=== PATIENT | female | born 1975 | race Caucasian/White ===

== ENCOUNTER → 2017-07-17 | Outpatient (CLI) | payer OTHER, BC ==
[~2017-07-17] MED LIST: CALCIUM; FLAGYL; HYDR-707 PO; KETO-22 PO; LEVO175T2 PO; MORP60TA12; TROS60CA; VITA1TAB74 PO
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
== END ==
LOC: RAD 11:43
PROVIDERS: ATTEND Orthopaedic Surgery
DX: M47.812 Spondylosis without myelopathy or radiculopathy, cervical region (principal)
CPT/HCPCS: 72141

== ENCOUNTER → 2021-06-23 | Outpatient (CLI) | payer OTHER ==
[2021-06-23 12:55] LABS: HEMATOCRIT 38 % (35-52); HEMOGLOBIN 12.6 G/DL (11.5-16.0); MEAN CORPUSCULAR HEMOGLOBIN 31 PG (25-34); MEAN CORPUSCULAR HGB CONC 33 G/DL (32-36); MEAN CORPUSCULAR VOLUME 95 FL (80-99); WHITE BLOOD COUNT 5.3 10^3/uL (4.3-11.0)
[2021-06-23 12:56] LABS: BASOPHILS # (AUTO) 0.1 10^3/uL (0.0-0.1); BASOPHILS % (AUTO) 1 % (0-10); EOSINOPHILS # (AUTO) 0.2 10^3/uL (0.0-0.3); EOSINOPHILS % (AUTO) 4 % (0-10); LYMPHOCYTES # (AUTO) 2.1 X 10^3 (1.0-4.0); LYMPHOCYTES % (AUTO) 39 % (12-44); MEAN PLATELET VOLUME 9.5 FL (7.4-10.4); MONOCYTES # (AUTO) 0.5 X 10^3 (0.0-1.0); MONOCYTES % (AUTO) 9 % (0-12); NEUTROPHILS # (AUTO) 2.5 X 10^3 (1.8-7.8); NEUTROPHILS % (AUTO) 47 % (42-75); PLATELET COUNT 359 10^3/uL (130-400)
[2021-06-23 13:00] LABS: POTASSIUM 3.7 MMOL/L (3.6-5.0)
[2021-06-23 13:01] LABS: ALBUMIN 3.8 GM/DL (3.2-4.5); BILIRUBIN,TOTAL 0.2 MG/DL (0.1-1.0); CALCIUM 8.7 MG/DL (8.5-10.1); CREATININE SERUM 1.06 MG/DL (0.60-1.30); TOTAL PROTEIN 6.4 GM/DL (6.4-8.2)
--- NOTE | 2021-06-23 13:58 | Diagnostic Imaging Report ---
INDICATION: Cough, pneumonia, shortness of breath. History of Covid. FINDINGS: There is some air trapping and features of underlying COPD but no findings of pneumonia or acute infiltrate. No failure, effusion or pneumothorax. IMPRESSION: Clear hyperexpanded lungs. No acute appearing abnormality. Dictated by: Dictated on workstation # [id number]
== END ==
LOC: LAB FS 11:53
PROVIDERS: ATTEND Nurse Practitioner Family
DX: J18.9 Pneumonia, unspecified organism (principal); Z86.16 Personal history of COVID-19
CPT/HCPCS: 36415; 71046; 80053; 85025; 85379

== ENCOUNTER 2022-08-10 17:37 | Emergency (ER) | payer OTHER ==
[~2022-08-10] VITALS: Ht 162.5 cm; Wt 66.2 kg
--- NOTE | 2022-08-10 17:50 | ED Chest Pain ---
General Chief Complaint: Chest Pain Stated Complaint: LEGS SWELLING,DRY COUGH,NAUSEA,CHEST PAIN/PRESSURE History of Present Illness Date Seen by Provider: Aug 10, 2022 Time Seen by Provider: 17:45 Initial Comments Patient reports that she has had chest pain for the past week. Symptoms have been fairly consistent since that time. Reports that she feels a heaviness in her chest. History of OH in the past. Reports that she did not receive stents at that time. Does have stents in groin for PVD. States that she has noticed that her legs have been really swollen throughout the week. Is taking Lasix this week. Reports that she has it prn and has had to take it every day this week. 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 Associated Symptoms: No abdominal pain, No back pain, No diaphoresis, No dizziness, No edema, No fatigue, No fever/chills, No headache, No heartburn, No nausea/vomiting, No shortness of breath, No syncope, No weakness Allergies and Home Medications Allergies Coded Allergies: Penicillins (Verified Adverse Reaction, Unknown, RASH, 12/25/05) oxycodone HCl (Unverified Adverse Reaction, Unknown, 08/10/22) Patient Home Medication List Home Medication List Reviewed: Yes Hydrocodone Bit/Acetaminophen (Lortab 5-500 Tablet) 1 Each Tablet, 1 EACH PO Q 4 - 6 HR PRN, (Reported) Entered as Reported by: BRENT DUMONT on 06/30/091900 Ketorolac Tromethamine (Toradol) 10 Mg Tablet, 10 MG PO Q8H PRN Prescribed by: MAGGIE AGUILERA on 06/20/111956 Levothyroxine Sodium (Synthroid) 175 Mcg Tablet, 1 EACH PO DAILY, (Reported) Entered as Reported by: NICO BARBOZA on 06/18/11 152 Morphine Sulfate (Ms Contin) 60 Mg Tablet.sa, (Reported) Entered as Reported by: DAKSHA NICHOLSON on 06/20/111828 Vitamin B Complex (Super B [id number]) 1 Each Tablet, 1 EACH PO DAILY, (Reported) Entered as Reported by: BRENT DUMONT on 06/30/09 8848 Review of Systems Review of Systems Constitutional: No chills, No dizziness, No fever, No weakness EENTM: No Symptoms Reported Respiratory: Denies Cough; Shortness of Air, SOA With Exertion, SOA at Rest; Denies Wheezing Cardiovascular: Chest Pain, Edema (bilateral lower extremities); Denies Lightheadedness, Denies Palpitations, Denies Syncope Gastrointestinal: Denies Abdominal Pain, Denies Diarrhea, Denies Nausea, Denies Vomiting Genitourinary: Denies Burning, Denies Frequency Musculoskeletal: No back pain Skin: No pruritus, No rash Psychiatric/Neurological: Denies Headache, Denies Numbness, Denies Paresthesia All Other Systems Reviewed Negative Unless Noted: Yes Past Ilvujnv-Knoimc-Rlnmnk Hx Patient Social History Tobacco Use?: No Substance use?: No Alcohol Use?: No Past Medical History Reproductive Disorders: No Family Medical History Reviewed Nursing Family Hx Physical Exam Vital Signs Vital Signs - First Documented 08/10/22 08/10/22 17:42 19:16 Temp 36.6 Pulse 98 Resp 16 B/P (MAP) 137/101 (113) Pulse Ox 98 O2 Delivery Room Air Capillary Refill : Height, Weight, BMI Height: '" Weight: lbs. oz. kg; BMI Method:Stated General Appearance: No Apparent Distress, WD/WN Neck: Full Range of Motion, Normal Inspection, Non Tender, Supple Respiratory: Chest Non Tender, Lungs Clear, Normal Breath Sounds, No Accessory Muscle Use, No Respiratory Distress Cardiovascular: Regular Rate, Rhythm, Other (bilateral lowere extremity swelling, right more then left) Gastrointestinal: Normal Bowel Sounds, No Organomegaly, No Pulsatile Mass, Soft Extremity: Non Tender, Swelling (bilateral lower extremity) Neurologic/Psychiatric: Alert, Oriented x3 Skin: Normal Color, Warm/Dry Progress/Results/Core Measures Results/Orders Lab Results Laboratory Tests Test 08/10/22 17:53 Range/Units White Blood Count 4.3 4.3-11.0 10^3/uL Red Blood Count 3.60 L 3.80-5.11 10^6/uL Hemoglobin 11.4 L 11.5-16.0 g/dL Hematocrit 35 35-52 % Mean Corpuscular Volume 96 80-99 fL Mean Corpuscular Hemoglobin 32 25-34 pg Mean Corpuscular Hemoglobin Concent 33 32-36 g/dL Red Cell Distribution Width 13.1 10.0-14.5 % Platelet Count 268 130-400 10^3/uL Mean Platelet Volume 9.4 9.0-12.2 fL Immature Granulocyte % (Auto) 0 % Neutrophils (%) (Auto) 62 42-75 % Lymphocytes (%) (Auto) 22 12-44 % Monocytes (%) (Auto) 11 0-12 % Eosinophils (%) (Auto) 4 0-10 % Basophils (%) (Auto) 1 0-10 % Neutrophils # (Auto) 2.7 1.8-7.8 10^3/uL Lymphocytes # (Auto) 0.9 L 1.0-4.0 10^3/uL Monocytes # (Auto) 0.5 0.0-1.0 10^3/uL Eosinophils # (Auto) 0.2 0.0-0.3 10^3/uL Basophils # (Auto) 0.1 0.0-0.1 10^3/uL Immature Granulocyte # (Auto) 0.0 0.0-0.1 10^3/uL Prothrombin Time 13.8 12.2-14.7 SEC INR Comment 1.0 0.8-1.4 Activated Partial Thromboplast Time 30 24-35 SEC Sodium Level 143 135-145 MMOL/L Potassium Level 3.3 L 3.6-5.0 MMOL/L Chloride Level 101 98-107 MMOL/L Carbon Dioxide Level 28 21-32 MMOL/L Anion Gap 14 5-14 MMOL/L Blood Urea Nitrogen 9 7-18 MG/DL Creatinine 1.05 0.60-1.30 MG/DL Estimat Glomerular Filtration Rate 66 BUN/Creatinine Ratio 9 Glucose Level 118 H 70-105 MG/DL Calcium Level 8.3 L 8.5-10.1 MG/DL Corrected Calcium 8.5 8.5-10.1 MG/DL Magnesium Level 1.7 1.6-2.4 MG/DL Total Bilirubin 0.3 0.1-1.0 MG/DL Aspartate Amino Transf (AST/SGOT) 25 5-34 U/L Alanine Aminotransferase (ALT/SGPT) 24 0-55 U/L Alkaline Phosphatase 65 40-136 U/L Myoglobin 69.1 10.0-92.0 NG/ML Troponin I < 0.028 <0.028 NG/ML B-Type Natriuretic Peptide 58.4 <100.0 PG/ML Total Protein 6.7 6.4-8.2 GM/DL Albumin 3.8 3.2-4.5 GM/DL Lipase 32 8-78 U/L My Orders Orders - DEYA FU APRN Cbc With Automated Diff (08/10/22 17:50) Magnesium (08/10/22 17:50) Chest 1 View, Ap/Pa Only (08/10/22 17:50) Ekg Tracing (08/10/22 17:50) Comprehensive Metabolic Panel (08/10/22 17:50) Myoglobin Serum (08/10/22 17:50) Protime With Inr (08/10/22 17:50) Partial Thromboplastin Time (08/10/22 17:50) O2 (08/10/22 17:50) Monitor-Rhythm Ecg Trace Only (08/10/22 17:50) Ed Iv/Invasive Line Start (08/10/22 17:50) Lipase (08/10/22 17:50) Bnp Dominique (08/10/22 17:50) Troponin I Dominique (08/10/22 17:50) Aspirin Chewable Tablet (Baby Aspirin Ch (08/10/22 18:00) Medications Given in ED Current Medications Medications Dose Ordered Sig/Manjula Route Start Time Stop Time Status Last Admin Dose Admin Aspirin 324 mg ONCE ONCE PO 08/10/22 18:00 08/10/22 18:01 DC 08/10/22 18:03 324 MG Vital Signs/I&O 08/10/22 08/10/22 17:42 19:16 Temp 36.6 Pulse 98 71 Resp 16 16 B/P (MAP) 137/101 (113) 124/85 Pulse Ox 98 98 O2 Delivery Room Air Room Air Progress Progress Note : Progress Note Patient comes to department with chest pain for the past week with bilateral lower leg swelling. States that she has been taking her Lasix daily to decrease the swelling. Will check labs and XR and determine further treatment from there. 1900: Spoke to patient in regards to labs and imaging. Overall labs looked good. Did not appear by labs and CXR to have CHF. No history of CHF that she is aware of. Troponin was negative. She had mild bilateral lower extremity swelling which is likely improving this week based off the fact that she is already taking Lasix. Her troponin was negative despite having symptoms for the past few days, so I do not thinks that she needs additional trending troponins. Instructed on the importance of follow up with PCP for further evaluation and treatment. Reasons to return to the ER were discussed with patient and family. Initial ECG Impression Date: Aug 10, 2022 Initial ECG Impression Time: 17:40 Initial ECG Rate: 85 Initial ECG Rhythm: Normal Sinus Initial ECG Intervals: Normal Initial ECG Impression: Normal Departure Impression Primary Impression: Chest pain Qualified Codes: R07.9 - Chest pain, unspecified Disposition: 01 HOME, SELF-CARE Condition: Stable Departure-Patient Inst. Decision time for Depature: 19:11 Referrals: NO,LOCAL PHYSICIAN (PCP/Family) Primary Care Physician Patient Instructions: Chest Pain (DC) Add. Discharge Instructions: 1. Follow up with PCP for further evaluation and treatment. 2. Continue medications at home as directed. 3. Return here if worse or concerns. All discharge instructions reviewed with patient and/or family. Voiced under standing. DEYA FU APRN Aug 10, 2022 17:50
[2022-08-10 18:00] LABS: BASOPHILS # (AUTO) 0.1 10^3/uL (0.0-0.1); BASOPHILS % (AUTO) 1 % (0-10); EOSINOPHILS # (AUTO) 0.2 10^3/uL (0.0-0.3); EOSINOPHILS % (AUTO) 4 % (0-10); HEMATOCRIT 35 % (35-52); HEMOGLOBIN 11.4 g/dL (11.5-16.0); LYMPHOCYTES # (AUTO) 0.9 10^3/uL (1.0-4.0); LYMPHOCYTES % (AUTO) 22 % (12-44); MEAN CORPUSCULAR HEMOGLOBIN 32 pg (25-34); MEAN CORPUSCULAR HGB CONC 33 g/dL (32-36); MEAN CORPUSCULAR VOLUME 96 fL (80-99); MEAN PLATELET VOLUME 9.4 fL (9.0-12.2); MONOCYTES # (AUTO) 0.5 10^3/uL (0.0-1.0); MONOCYTES % (AUTO) 11 % (0-12); NEUTROPHILS # (AUTO) 2.7 10^3/uL (1.8-7.8); NEUTROPHILS % (AUTO) 62 % (42-75); PLATELET COUNT 268 10^3/uL (130-400); WHITE BLOOD COUNT 4.3 10^3/uL (4.3-11.0)
[2022-08-10] MEDS ORDERED: ASPIRIN 81 MG CHEW (CHILDREN'S ASA) PO ONE (18:00)
[2022-08-10 18:18] LABS: ALBUMIN 3.8 GM/DL (3.2-4.5); POTASSIUM 3.3 MMOL/L (3.6-5.0)
[2022-08-10 18:20] LABS: CALCIUM 8.3 MG/DL (8.5-10.1)
--- NOTE | 2022-08-10 18:20 | Diagnostic Imaging Report ---
INDICATION: Chest pain. EXAMINATION: Frontal chest was obtained at 6:08 p.m. COMPARISON: 06/23/2021. FINDINGS: Heart and mediastinal silhouette are normal in appearance. The lungs are clear. There is no pneumothorax or pleural fluid. IMPRESSION: Negative chest. Dictated by: Dictated on workstation # [id number]
[2022-08-10 18:21] LABS: TOTAL PROTEIN 6.7 GM/DL (6.4-8.2)
[2022-08-10 18:23] LABS: BILIRUBIN,TOTAL 0.3 MG/DL (0.1-1.0)
[2022-08-10 18:24] LABS: CREATININE SERUM 1.05 MG/DL (0.60-1.30)
[2022-08-10 18:28] LABS: MAGNESIUM 1.7 MG/DL (1.6-2.4)
[2022-08-10 18:46] LABS: PROTHROMBIN TIME PATIENT 13.8 SEC (12.2-14.7)
[2022-08-10 19:16] VITALS: BP 124/85
== END 2022-08-10 19:21 | disposition home or self-care (01) ==
LOC: EDUNIT# 17:37 → ER 17:40
DX: R07.89 Other chest pain (principal)
CPT/HCPCS: 36415; 71045; 80053; 83690; 83735; 83874; 83880; 84484; 85025; 85610; 85730; 93005; 93041

== ENCOUNTER 2022-12-13 12:34 | Emergency (ER) | payer OTHER ==
[2022-12-13 12:52] VITALS: BP 133/90
[2022-12-13] MEDS ORDERED: IBUPROFEN 600 MG (MOTRIN) TAB PO STA (13:09)
--- NOTE | 2022-12-13 13:12 | ED Fall/Injury ---
General Chief Complaint: Upper Extremity Stated Complaint: LT WRIST INJ Nursing Triage Note: PT REPORTS SHE FELL THIS AM ONTO HER LEFT WRIST AT ABOUT 11AM. Source: patient History of Present Illness Date Seen by Provider: Dec 13, 2022 Time Seen by Provider: 12:37 Initial Comments 47-year-old female presenting with complaints of left wrist pain since she fell around 11 AM. She states that she was sitting on the floor with her legs crossed and her feet went to sleep. She does have a history of prior lumbar surgery for spinal stenosis and irritated nerves. She reports getting intermitt ent numbness and tingling in her legs but usually it improves that she changes position. She had gotten up from the floor and was slowly walking back to her bedroom using furniture and pitts to help stabilize her. She fell he felt like her foot had improved but when she stepped down without any furniture or wall to help support her she states that her foot was numb and that caused her to fall backward. When she fell she had hit her left wrist and was having pain. She denies any numbness or weakness in her fingers or hand. She was also concerned because she had fallen 3 to 4 weeks ago and thought she heard a popping in her ribs on the right and left side. She was having more pain on the left side since the fall this morning so she was concerned about possible rib fractures. She denies having shortness of breath or fever, chills, nausea, vomiting, headache, abdominal pain, pain with urination. Occurred: this morning (around 11 am fall today but also fell about 3-4 weeks ago causing rib pain that is worse today since she had new fall) Severity: moderate Injuries/Pain Location: upper extremity (Left wrist), chest (Bilateral lower ribs) Loss of Consciousness: no loss of consciousness Modifying Factors: Worse With Movement Associated Symptoms (Fall): No Abdominal Pain, No Confusion, No Dizziness, No Headache, No Lightheadedness, No Muscle Spasms, No Nausea/Vomiting, No Neck Pain, No Ringing in Ears, No Seizures, No Shortness of Air, No Slurred Speech, No Vision Changes Allergies and Home Medications Allergies Coded Allergies: Penicillins (Verified Adverse Reaction, Unknown, RASH, 12/25/05) oxycodone HCl (Unverified Adverse Reaction, Unknown, 08/10/22) Patient Home Medication List Home Medication List Reviewed: Yes Hydrocodone Bit/Acetaminophen (Lortab 5-500 Tablet) 1 Each Tablet, 1 EACH PO Q 4 - 6 HR PRN, (Reported) Entered as Reported by: BRENT DUMONT on 06/30/09 190 Ketorolac Tromethamine (Toradol) 10 Mg Tablet, 10 MG PO Q8H PRN Prescribed by: MAGGIE AGUILERA on 06/20/111956 Levothyroxine Sodium (Synthroid) 175 Mcg Tablet, 1 EACH PO DAILY, (Reported) Entered as Reported by: NICO BARBOZA on 06/18/11 1520 Morphine Sulfate (Ms Contin) 60 Mg Tablet.sa, (Reported) Entered as Reported by: DAKSHA NICHOLSON on 06/20/11 182 Vitamin B Complex (Super B [id number]) 1 Each Tablet, 1 EACH PO DAILY, (Reported) Entered as Reported by: BRENT DUMONT on 06/30/09 185 Review of Systems Review of Systems Constitutional: No chills, No dizziness, No fever Eyes: No Symptoms Reported Ears, Nose, Mouth, Throat: no symptoms reported Respiratory: No cough, No short of breath, No stridor, No wheezing Cardiovascular: chest pain (Bilateral lower rib pain causing her chest to hurt since she fell 3 to 4 weeks ago and worse after the fall today) Gastrointestinal: see HPI Genitourinary: no symptoms reported Musculoskeletal: see HPI Skin: No change in color Psychiatric/Neurological: Anxiety Past Mozdlmq-Wfgeaq-Wpgphs Hx Patient Social History Tobacco Use?: Yes Tobacco type used: Cigarettes Smoking Status: Former Smoker Use of E-Cig and/or Vaping dev: No Substance use?: No Alcohol Use?: No Pt feels they are or have been: No Immunizations Up To Date First/Initial COVID19 Vaccinat: 2020 Second COVID19 Vaccination Geovanny: 2020 Third COVID19 Vaccination Date: 2020 Past Medical History Surgery/Hospitalization HX: THYROIDECTOMY HYSTERECTOMY SPINAL FUSION COPD DEPRESSION CYSTITIS Reproductive Disorders: No Physical Exam Vital Signs Vital Signs - First Documented 12/13/22 12:52 Temp 36.1 Pulse 69 Resp 16 B/P (MAP) 133/90 (104) Pulse Ox 98 O2 Delivery Room Air Capillary Refill : Less Than 3 Seconds Height, Weight, BMI Height: '" Weight: lbs. oz. kg; 25.00 BMI Method:Stated General Appearance: WD/WN, no apparent distress Cardiovascular: normal peripheral pulses, regular rate, rhythm Respiratory: No chest non-tender (Tender to palpation not bilateral lower lateral ribs no crepitus or step-off noted.); lungs clear, normal breath sounds, no respiratory distress, no accessory muscle use Gastrointestinal: normal bowel sounds, non tender, soft, no pulsatile mass Extremities: No normal range of motion (Decreased flexion and extension at the wrist due to pain on the left side. No obvious deformity or step-off noted and no crepitus on exam); no calf tenderness, normal capillary refill Neurologic/Psychiatric: lock master II-XII nml as tested, no motor/sensory deficits, alert, normal mood/affect, oriented x 3 Skin: normal color, warm/dry Christin Coma Score Best Eye Response: (4) Open Spontaneously Best Verbal Response: (5) Oriented Best Motor Response: (6) Obeys Commands [place] Total: 15 Progress/Results/Core Measures Results/Orders My Orders Orders - JOSH YANG MD Wrist 3 View Left (12/13/22 13:09) Ribs/Bilateral With Chest (12/13/22 13:09) Ibuprofen Tablet (Motrin Tablet) (12/13/22 13:09) Ed Ortho/Other Supplies Order (12/13/22 14:22) Orthopedic Equiment (12/13/22 14:22) Wrist-Hamilton (12/13/22 14:22) Dexamethasone Injection (Decadron Inje (12/13/22 14:50) Methylprednisolone Acetate Inj (Depo-Med (12/13/22 14:50) Vital Signs/I&O 12/13/22 12:52 Temp 36.1 Pulse 69 Resp 16 B/P (MAP) 133/90 (104) Pulse Ox 98 O2 Delivery Room Air Blood Pressure Mean: 104 Progress Progress Note #1: Progress Note With concern for possible rib fractures as well as fracture of the wrist will obtain x-rays to look for acute bony abnormality with chest x-ray and bilateral rib films as well as three-view films of the left wrist. Ordered ibuprofen 600 mg by mouth for pain and inflammation. From review of her prescription drug mo nitoring program she had refilled her Suboxone on 09 December. She takes this for chronic rheumatoid arthritis pain from Dr. SO. Progress Note #2: Progress Note I personally interpreted and reviewed her three-view x-rays of the left wrist and did not see any acute fracture or bony abnormality. I personally reviewed her chest x-ray with rib bilateral rib films and did not appreciate any acute fracture, pneumothorax, infiltrate. Ordered Velcro cock up wrist splint for left wrist to help with support and let the strain to her wrist heal. Continue with Acetaminophen and Ibuprofen over the counter to help with pain and inflammation of the left wrist. Progress Note #3: Time: 14:20 Progress Note After reviewing the radiologist reports on the left wrist x-rays and the chest x-ray with bilateral rib films it was noted that the patient had a left ninth rib fracture. Updated patient about the findings and results. Counseled on treatment with hhqi-pnu-ijzqdih acetaminophen and ibuprofen. Continue with her Suboxone for chronic pain. Follow-up with Dr. SO in the clinic for continued concerns. If her left wrist is not improving within the next 5 to 7 days they may need to repeat x-rays or do additional studies through the clinic. She might even benefit from physical therapy if she continues to have problems with her wrist. Diagnostic Imaging Diagonstic Imaging: Xray Plain Films/CT/US/NM/MRI: other (wrist) Comments [facility] [place] NAME: VELVET AMIN [facility] REC#: [id number] PT STATUS: [facility] ER : 1975 PHYSICIAN: JOSH YANG MD ADMIT DATE: 12/13/22/ER FS Signed Date of Exam:12/13/22 WRIST 3 VIEW LEFT HISTORY: Followup left wrist pain. TECHNIQUE: 3 views of the left wrist. COMPARISON: None FINDINGS: No acute fracture or dislocation is seen in the left wrist. Alignment appears normal. Joint spaces are preserved. No cortical erosions are seen. The pronator fat pad is not displaced. IMPRESSION: 1. No acute osseous abnormalities seen in the left wrist. Dictated by: Dictated on workstation # [id number] Dict: 12/13/22 1353 Trans: 12/13/22 1715 CVB [id number] Interpreted by: KEEGAN LE MD Electronically signed by: KEEGAN LE MD 12/13/22 1715 Reviewed: Reviewed by Me (1418 I reviewed radiologist report on 3 views films of left wrist and they did not see any acute process either.) Diagonstic Imaging: Xray Plain Films/CT/US/NM/MRI: chest (with bilateral ribs) Comments [facility] [place] NAME: VELVET AMIN [facility] REC#: [id number] PT STATUS: [facility] ER : 1975 PHYSICIAN: JOSH YANG MD ADMIT DATE: 12/13/22/ER FS Signed Date of Exam:12/13/22 RIBS/BILATERAL WITH CHEST HISTORY: Bilateral rib pain after fall. COMPARISON: 06/23/2021. TECHNIQUE: Frontal view of the chest. Frontal and oblique views of the bilateral ribs. FINDINGS: Lung volumes are normal. No consolidation is seen. There is no pleural effusion or pneumothorax. The cardiac silhouette is normal in size. There is a minimally displaced rib fracture of the anterior left ninth rib. No displaced right rib fracture is seen. IMPRESSION: 1. Mildly displaced anterior left ninth rib fracture. Dictated by: Dictated on workstation # [id number] Dict: 12/13/22 1350 Trans: 12/13/22 1715 [id number] Interpreted by: KEEGAN LE MD Electronically signed by: KEEGAN LE MD 12/13/22 1715 Reviewed: Reviewed by Me (1418 I reviewed radiologist report on Chest xray with bilateral rib films and they did see a minimally displaced left 9th rib fracture ) Departure Impression Primary Impression: Fracture of one rib, left side, initial encounter for closed fracture Additional Impressions: Fall at home Qualified Codes: W19.XXXA - Unspecified fall, initial encounter; Y92.009 - Unspecified place in unspecified non-institutional (private) residence as the place of occurrence of the external cause Unspecified sprain of left wrist, initial encounter Disposition: HOME, SELF-CARE Condition: Stable Departure-Patient Inst. Decision time for Depature: 14:38 Referrals: ELIZABETH SO DO (PCP) Primary Care Physician Patient Instructions: Preventing Falls ED, Rib Fracture or Bruised Rib ED, Wrist Sprain ED Add. Discharge Instructions: Wear wrist splint to help with resting the left wrist so it can heal from the sprain. May apply ice 20-30 minutes every few hours as needed for pain/swelling. Check with clinic for continued problems. The left 9th rib has a fracture so will cause pain but no injury to lungs. Follow up with your primary care provider about continued pain management of this and to recheck about it healing. All discharge instructions reviewed with patient and/or family. Voiced understanding. JOSH YANG MD Dec 13, 2022 13:12
--- NOTE | 2022-12-13 13:55 | Diagnostic Imaging Report ---
HISTORY: Followup left wrist pain. TECHNIQUE: 3 views of the left wrist. COMPARISON: None FINDINGS: No acute fracture or dislocation is seen in the left wrist. Alignment appears normal. Joint spaces are preserved. No cortical erosions are seen. The pronator fat pad is not displaced. IMPRESSION: 1. No acute osseous abnormalities seen in the left wrist. Dictated by: Dictated on workstation # [id number]
--- NOTE | 2022-12-13 13:56 | Diagnostic Imaging Report ---
HISTORY: Bilateral rib pain after fall. COMPARISON: 06/23/2021. TECHNIQUE: Frontal view of the chest. Frontal and oblique views of the bilateral ribs. FINDINGS: Lung volumes are normal. No consolidation is seen. There is no pleural effusion or pneumothorax. The cardiac silhouette is normal in size. There is a minimally displaced rib fracture of the anterior left ninth rib. No displaced right rib fracture is seen. IMPRESSION: 1. Mildly displaced anterior left ninth rib fracture. Dictated by: Dictated on workstation # [id number]
[2022-12-13] MEDS ORDERED: methylPREDNISolone 80 MG/ML (DEPO MEDROL) VIAL IM STA (14:50)
== END 2022-12-13 14:42 | disposition home or self-care (01) ==
LOC: EDUNIT# 12:34 → ER FS 12:37
DX: S22.32XA Fracture of one rib, left side, initial encounter for closed fracture (principal); S63.502A Unspecified sprain of left wrist, initial encounter; Z87.891 Personal history of nicotine dependence; W18.30XA Fall on same level, unspecified, initial encounter; W22.8XXA Striking against or struck by other objects, initial encounter; Y92.009 Unspecified place in unspecified non-institutional (private) residence as the place of occurrence of the external cause
CPT/HCPCS: 71111; 73110

== ENCOUNTER → 2023-01-16 | Outpatient (CLI) | payer OTHER ==
--- NOTE | 2023-01-16 17:54 | Diagnostic Imaging Report ---
EXAMINATION: Sacroiliac joint radiographs, 3 views. COMPARISON: None. HISTORY: 47-year-old female, low back pain. FINDINGS: The sacroiliac joint spaces are well-preserved. There is no identified bone erosion. There is no identified bone ankylosis. Both hip joint spaces appear well-preserved. There is lumbar spine hardware noted. There is also graft material. IMPRESSION: 1. Unremarkable evaluation of the sacroiliac joints. Dictated by: Dictated on workstation # [id number]
--- NOTE | 2023-01-16 17:57 | Diagnostic Imaging Report ---
INDICATION: Low back pain AP and lateral views of the lumbar spine are obtained. There is no prior study for comparison. Patient has had previous lower lumbar spine fusion from L3 through S1. There is prominent disc space narrowing at L2-L3. There is no sign of hardware loosening. Patient has had previous laminectomy from L3 through L5. Vascular stents are noted. IMPRESSION: Degenerative and postoperative changes in the lumbar spine as above with no overt acute abnormality. Dictated by: Dictated on workstation # [id number]
== END ==
LOC: RAD FS 14:56
PROVIDERS: ATTEND Nurse Practitioner Family
DX: M51.36 Other intervertebral disc degeneration, lumbar region (principal); Z98.890 Other specified postprocedural states
CPT/HCPCS: 72100; 72202

== ENCOUNTER 2023-02-22 19:48 | Emergency (ER) | payer OTHER ==
[~2023-02-22] VITALS: Ht 160 cm; Wt 63.5 kg
[2023-02-22 20:09] VITALS: BP 135/86
[2023-02-22] MEDS ORDERED: ACETAMINOPHEN 500 MG TAB (TYLENOL) PO ONE (20:15)
[2023-02-22] MEDS ORDERED: TETANUS,DIPTH,PERTUSS P/F (BOOSTRIX) 0.5 ML VIAL IM ONE (20:15)
--- NOTE | 2023-02-22 20:17 | ED Upper Extremity ---
General Chief Complaint: Laceration Stated Complaint: L THUMB LAC Source: patient Exam Limitations: no limitations History of Present Illness Date Seen by Provider: Feb 22, 2023 Time Seen by Provider: 19:51 Initial Comments 47-year-old female is [id number]-[id number] coming in after she was cutting some corn, got distracted by a child, and sliced off the very tip of her left thumb. This occurred just prior to arrival. Having constant, throbbing pain in that th umb. Has not taken any medicines for it as of yet. She did wash it off before coming here. She is unsure when her last tetanus vaccine was. She is otherwise denying any other acute complaints. Allergies and Home Medications Allergies Coded Allergies: Penicillins (Verified Adverse Reaction, Unknown, RASH, 12/25/05) oxycodone HCl (Unverified Adverse Reaction, Unknown, 08/10/22) Patient Home Medication List Home Medication List Reviewed: Yes Hydrocodone Bit/Acetaminophen (Lortab 5-500 Tablet) 1 Each Tablet, 1 EACH PO Q 4 - 6 HR PRN, (Reported) Entered as Reported by: BRENT DUMONT on 06/30/09 190 Ketorolac Tromethamine (Toradol) 10 Mg Tablet, 10 MG PO Q8H PRN Prescribed by: MAGGIE AGUILERA on 06/20/111956 Levothyroxine Sodium (Synthroid) 175 Mcg Tablet, 1 EACH PO DAILY, (Reported) Entered as Reported by: NICO BARBOZA on 06/18/11 1520 Morphine Sulfate (Ms Contin) 60 Mg Tablet.sa, (Reported) Entered as Reported by: DAKSHA NICHOLSON on 06/20/11 182 Vitamin B Complex (Super B [id number]) 1 Each Tablet, 1 EACH PO DAILY, (Reported) Entered as Reported by: BRENT DUMONT on 06/30/09 1858 Review of Systems Constitutional: No fever EENTM: no symptoms reported Respiratory: no symptoms reported Cardiovascular: no symptoms reported Skin: see HPI Psychiatric/Neurological: No Symptoms Reported Past Npjelyn-Qapqml-Qqimru Hx Patient Social History Substance use?: No Immunizations Up To Date First/Initial COVID19 Vaccinat: 2020 Second COVID19 Vaccination Geovanny: 2020 Third COVID19 Vaccination Date: 2020 Past Medical History Surgery/Hospitalization HX: THYROIDECTOMY HYSTERECTOMY SPINAL FUSION COPD DEPRESSION CYSTITIS Reproductive Disorders: No Physical Exam Vital Signs Vital Signs - First Documented 02/22/23 20:09 Temp 35.8 Pulse 70 Resp 20 B/P (MAP) 135/86 (102) Capillary Refill : Height, Weight, BMI Height: '" Weight: lbs. oz. kg; 25.00 BMI Method:Stated General Appearance: WD/WN, no apparent distress HEENT: PERRL/EOMI, normal ENT inspection, pharynx normal Neck: non-tender, full range of motion, supple, normal inspection Cardiovascular: regular rate, rhythm Respiratory: chest non-tender, lungs clear Gastrointestinal: soft Shoulder: normal inspection, normal ROM Elbow/Forearm: normal inspection, normal ROM Wrist: Yes normal inspection, Yes normal ROM Hand: Left (Left thumb with a 2 mm portion on the distal tip now missing, no bone visualized, the nailbed edge was also cut off) Neurologic/Psychiatric: no motor/sensory deficits, alert, normal mood/affect Skin: normal color, warm/dry Progress/Results/Core Measures Results/Orders My Orders Orders - ULISSES FISHER MD Dipht,Pertuss(Acell),Tet Adult (Boostrix (02/22/23 20:15) Acetaminophen Tablet (Tylenol Tablet) (02/22/23 20:15) Vital Signs/I&O 02/22/23 20:09 Temp 35.8 Pulse 70 Resp 20 B/P (MAP) 135/86 (102) Progress Progress Note : Progress Note 47-year-old female with above history coming in after avulsing a portion of her left thumb on the distal tip. ABCs were intact and vitals were stable on presentation. It is a very superficial amount that has been removed. It was cleaned extensively, antibiotic ointment was placed on it, Xeroform gauze then placed, and a sterile dressing afterwards. Tetanus was updated today. Given Tylenol for pain control. She has narcotic pain medicine at home that she can take she states. I believe she is otherwise stable for discharge with outpatient follow-up. She was sent home with strict return precautions. Patient does have risk factors for infection, was sent home with a prescription for Keflex. Departure Impression Primary Impression: Avulsion, finger tip Qualified Codes: S61.209A - Unspecified open wound of unspecified finger without damage to nail, initial encounter Disposition: HOME, SELF-CARE Condition: Stable Departure-Patient Inst. Decision time for Depature: 20:35 Referrals: ELIZABETH SO DO (PCP) Primary Care Physician NO,LOCAL PHYSICIAN (Family) Primary Care Physician Patient Instructions: Wound Care ED Add. Discharge Instructions: Keep the dressing clean and do not allow the area to be submerged in water for at least a week. Try to change the dressing at least daily, starting with antibiotic ointment. Follow-up with your regular doctor regarding the wound, especially if having difficulty healing. If you notice any redness spreading up your skin, pus coming out of the wound, and especially if you have new fever with it, I would want you to be seen in the ER. You will be on antibiotics for the next week. Scripts Cephalexin (Cephalexin) 500 Mg Tablet 500 MG PO QID for 7 Days, #28 TAB Prov: ULISSES FISHER MD 02/22/23 Work/School Note: Work Release Form Date Seen in the Emergency Department: Feb 22, 2023 Return to Work: Feb 24, 2023 Restrictions: No Restrictions ULISSES FISHER MD Feb 22, 2023 20:17
[2023-02-22] MEDS ORDERED: CEPH500T PO (20:38)
== END 2023-02-22 20:50 | disposition home or self-care (01) ==
LOC: EDUNIT# 19:48 → ER FS 19:50
DX: S61.102A Unspecified open wound of left thumb with damage to nail, initial encounter (principal); Z23 Encounter for immunization; Z88.0 Allergy status to penicillin; W26.0XXA Contact with knife, initial encounter
CPT/HCPCS: 99283; A6223; 90715

== ENCOUNTER → 2023-04-05 | Outpatient (CLI) | payer OTHER ==
[~2023-04-05] MED LIST changes: +CEPH500T PO
== END ==
LOC: RAD 13:03
PROVIDERS: ATTEND Nurse Practitioner Family
DX: M48.07 Spinal stenosis, lumbosacral region (principal); M54.6 Pain in thoracic spine

== ENCOUNTER → 2023-04-16 | Outpatient (CLI) | payer OTHER ==
[~2023-04-16] MED LIST changes: +GADOTERATE 0.5 MMOL/ML (CLARISCAN) 15 ML VIAL IV ONE
--- NOTE | 2023-04-16 14:39 | Diagnostic Imaging Report ---
CLINICAL INDICATION: Patient has chronic spine pain. History of trauma L-spine surgery in 2000. EXAM: MRI of the thoracic spine performed without and with IV contrast. Sagittal and coronal reformatted images are created. COMPARISON: None. FINDINGS: There is no acute thoracic spine fracture or dislocation. There is no significant Modic degenerative signal changes. 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 There is endplate irregularity and chronic Schmorl's nodes involving the mid thoracic spine. There are small posterior disk bulges at the T9-T10, T10-T11, and T11-T12. There is no significant central canal narrowing. There is moderate bilateral T10-T11 neural foramen narrowing. There is no significant paraspinal soft tissue abnormality. IMPRESSION: 1: There is no acute thoracic spine fracture or dislocation. There is no abnormal IV contrast enhancement. 2: There is mild thoracic spine degenerative disease. Dictated by: Dictated on workstation # [id number]
--- NOTE | 2023-04-16 16:51 | Diagnostic Imaging Report ---
CLINICAL INDICATION: Patient has chronic spine pain and history of trauma. Patient has history of previous lumbar surgery. EXAM: MRI of the lumbar spine without IV contrast. Sequences include sagittal T2, sagittal T1, sagittal T2 fat-sat, axial T2, and axial T1. COMPARISON: X-ray of the lumbar spine dated 01/16/2023. FINDINGS: Again seen are postop changes to the lumbar spine with L3 through S1 posterior lumbar fusion hardware with solid bony bridging/fusion seen at these levels. There are L3 through L5 laminectomies. There is no significant fluid collection in the laminectomy region. The visualized portions of the distal thoracic spinal cord, conus medullaris, and cauda equina nerve roots are unremarkable. The conus medullaris tip is seen at the L1-L2 intervertebral level. There are degenerative spurs involving the lumbar spine. L1-L2: There is mild diffuse disk bulge and mild ligamentum flavum buckling. There is no significant central canal or neuroforaminal narrowing. L2-L3: There is diffuse disk bulge with moderate to severe loss of disk space height and endplate irregularity. There is severe bilateral facet arthropathy. There is mild central canal stenosis. L3-L4: There is no significant central canal or neuroforaminal narrowing. L4-L5: There is no significant central canal or neuroforaminal narrowing. L5-S1: There is no significant bony central canal or neuroforaminal narrowing. IMPRESSION: 1: Again seen is L3 through S1 posterior lumbar fusion hardware in place. There is solid bony bridging/fusion seen from the L3 through L4 levels. 2: There is significant L2-L3 degenerative disk disease with diffuse disk bulge and facet arthropathy, suspected to be related to adjacent segment disease. Dictated by: Dictated on workstation # [id number]
== END ==
LOC: RAD 12:45
PROVIDERS: ATTEND Nurse Practitioner Family
DX: M47.816 Spondylosis without myelopathy or radiculopathy, lumbar region (principal); M48.07 Spinal stenosis, lumbosacral region; M51.36 Other intervertebral disc degeneration, lumbar region; M51.27 Other intervertebral disc displacement, lumbosacral region; M51.35 Other intervertebral disc degeneration, thoracolumbar region; Z98.1 Arthrodesis status
CPT/HCPCS: 72148; 72157

== ENCOUNTER → 2023-06-07 | Outpatient (CLI) | payer OTHER ==
[~2023-06-07] MED LIST changes: -GADOTERATE 0.5 MMOL/ML (CLARISCAN) 15 ML VIAL IV ONE
--- NOTE | 2023-06-07 17:07 | Diagnostic Imaging Report ---
PROCEDURE: MRI left joint lower extremity without contrast. TECHNIQUE: Multiplanar, multisequence [id number] MRI of the left lower extremity was accomplished. INDICATION: Pain in the left hip. COMPARISON: Radiographs from 01/16/2023. FINDINGS: No acute fracture is seen in the left hip. The femoral heads are well seated in the acetabula bilaterally. There is no joint effusion. The sacroiliac joints appear to be patent. No erosions are seen. There is fusion hardware in the lower lumbar spine. The left acetabular labrum is not well evaluated in the absence of intra-articular contrast, but there may be some degeneration anteriorly. There is no paralabral cyst. The iliopsoas tendon is intact with no bursitis. The gluteus minimus tendon appears intact. The gluteus medius tendon is intact. The hamstring tendon origin demonstrates mild tendinosis. There is minimal edema in the quadratus femoris muscle. There does appear to be mild tendinosis at the origin of the rectus femoris tendon. No free fluid is seen in the pelvis. No masses or lymphadenopathy is seen. No focal muscular atrophy is identified. IMPRESSION: 1. No acute osseous abnormality is seen in the pelvis or left hip. 2. Mild tendinosis at the origins of the left hamstring tendons and rectus femoris tendon. 3. Minimal edema in the quadratus femoris muscle, can be seen with ischiofemoral impingement. Dictated by: Dictated on workstation # [id number]
== END ==
LOC: RAD 14:16
PROVIDERS: ATTEND Nurse Practitioner Family
DX: M76.9 Unspecified enthesopathy, lower limb, excluding foot (principal); R26.89 Other abnormalities of gait and mobility; R53.1 Weakness
CPT/HCPCS: 73721